=== PATIENT | female | born 1990 | race Caucasian/White ===

== ENCOUNTER 2016-10-19 11:58 | Emergency (ER) | payer OTHER ==
[~2016-10-19] VITALS: Ht 165.1 cm; Wt 63.5 kg
--- NOTE | ~2016-10-19 | EKG ---
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
[2016-10-19] MEDS ORDERED: ADDERALL 10 MG10 MG PO (12:19)
[2016-10-19 12:52] LABS: BASOPHILS 0.4 % (0.0-2.0); EOSINOPHILS 1.3 % (0.0-3.0); HEMATOCRIT 42.5 % (37.0-47.0); HEMOGLOBIN 14.4 gm/dL (12.0-15.0); LYMPHOCYTES 34.1 % (24.0-44.0); MCH 30.7 pg (26.0-34.0); MCHC 33.9 g/dL (28.0-37.0); MCV 90.7 fL (80.0-100.0); PLATELET COUNT 381 thou/uL (150-400); POLYS 57.2 % (36.0-66.0); RBC 4.68 mil/uL (4.20-5.00); RDW 12.6 % (10.5-14.5); WBC 8.8 thou/uL (4.0-11.0)
[2016-10-19 12:53] LABS: MANUAL DIFF NO
[2016-10-19 12:56] LABS: ANION GAP 7 mmol/L (7-16); BUN 7 mg/dL (7-18); CALCIUM 9.3 mg/dL (8.5-10.1); CHLORIDE 105 mmol/L (98-107); CO2 27 mmol/L (21-32); CREATININE 0.8 mg/dL (0.6-1.0); GLUCOSE 87 mg/dL (74-106); POTASSIUM 3.8 mmol/L (3.5-5.1); SODIUM 139 mmol/L (136-145)
[2016-10-19 13:00] LABS: AMP/METHAMP POSITIVE (Negative); BARBITURATES Negative (Negative); BENZODIAZEPINES Negative (Negative); COCAINE Negative (Negative); METHADONE Negative (Negative); OPIATES Negative (Negative); PCP Negative (Negative); THC POSITIVE (Negative)
[2016-10-19 13:04] LABS: TROPONIN-I < 0.04 ng/mL (<0.04-0.07)
[2016-10-19 14:35] VITALS: BP 123/72
== END 2016-10-19 14:37 | disposition home or self-care (01) ==
LOC: ER 11:58
PROVIDERS: Emergency Medicine
DX: R55 Syncope and collapse (principal); R00.2 Palpitations; F17.210 Nicotine dependence, cigarettes, uncomplicated